=== PATIENT | female | born 1965 | race Caucasian/White ===

== ENCOUNTER 2021-10-07 17:17 | Inpatient (IN) | payer MEDICARE ==
[2021-10-07] MEDS ORDERED: NOREPINEPHRINE 8 MG/250 ML-D5W 250 ML ONE (17:25)
[2021-10-07] MEDS ORDERED: Ondansetron PF 4 MG/2 ML Vial ONE (17:51)
[2021-10-07] MEDS ORDERED: Lidocaine 1% (PF) 30 ML VIAL ONE (17:53)
[2021-10-07] MEDS ORDERED: Morphine 4 MG/ML VIAL ONE ×2 (18:15→18:18)
[2021-10-07 18:44] LABS: ALT (SGPT) 20 U/L (8-55); Albumin 2.8 g/dL (3.5-5.0); Alkaline Phosphatase 79 U/L (40-110); Anion Gap 18 mmol/L (10-20); BUN (Urea Nitrogen) 27 mg/dL (9.8-20.1); Bilirubin, Total 0.9 mg/dL (0.2-1.2); Calc. Creatinine Clearance 0 mL/min (70-130); Calcium 6.4 mg/dL (7.8-10.44); Carbon Dioxide 21 mmol/L (22-29); Chloride 95 mmol/L (98-107); Estimated GFR 23; Globulin 3.3 g/dL (2.4-3.5); Glucose 99 mg/dL (70-105); Protein, Total 6.1 g/dL (6.0-8.3); Sodium 131 mmol/L (136-145)
[2021-10-07 18:47] LABS: AST (SGOT) 68 U/L (5-34); Potassium 2.9 mmol/L (3.5-5.1)
[2021-10-07] MEDS ORDERED: Dextrose 5% in Water 1,000 ML IV PRN (19:03)
[2021-10-07] MEDS ORDERED: Calcium Carbonate 500 MG ChewTAB PO PRN (19:03)
[2021-10-07] MEDS ORDERED: Dextrose 50% Abboject 50 ML SYRINGE SLOW IVP PRN (19:03)
[2021-10-07] MEDS ORDERED: Senokot S 8.6-50 MG TAB PO PRN (19:03)
[2021-10-07] MEDS ORDERED: Guaifenesin DM 100-10/5 ML UDCUP PO PRN (19:03)
[2021-10-07] MEDS ORDERED: NOREPINEPHRINE 8 MG/250 ML-D5W 250 ML IVPB SCH (19:15)
[2021-10-07] MEDS ORDERED: Lactated Ringer's 1,000 ML IV SCH (19:15)
[2021-10-07] MEDS ORDERED: Calcium Gluc 4.6 MEQ/10 ML (100 MG/ML) SLOW IVP SCH (20:15)
[2021-10-07] MEDS ORDERED: Vancomycin HCl 1.5 GM, Admixture Fee 1 EACH in Sodium Chloride 0.9% 250 ML 300 ML IVPB SCH (20:30)
[2021-10-07] MEDS: Potassium Chloride 20 MEQ in Premix Bag 1 BAG IVPB SCH ×2 (20:58→22:37)
[2021-10-07] MEDS: Pantoprazole 40 MG VIAL IVP SCH (21:44)
[2021-10-07] MEDS: Nicotine 21 MG PATCH TD SCH (22:27)
[2021-10-07] MEDS: traZODone HCl 50 MG TAB PO SCH (22:27)
[2021-10-07] MEDS: Gabapentin 300 MG CAP PO SCH (22:27)
[2021-10-07] MEDS: Ondansetron PF 4 MG/2 ML Vial IVP PRN (22:40)
[2021-10-08 01:05] VITALS: BMI 32.4
[2021-10-08] MEDS ORDERED: Cefepime 2 GM in Sodium Chloride 0.9% 100 ML IVPB SCH (04:00)
[2021-10-08] MEDS: Ondansetron PF 4 MG/2 ML Vial IVP PRN ×2 (04:27→09:30)
[2021-10-08 04:44] LABS: #Eosinphils 0.1 10x3/uL (0.0-0.5); #Monocytes 0.3 10x3/uL (0.0-1.1); #Neutrophils 5.2 10x3/uL (1.5-8.4); %Basophils 0.2 % (0.0-2.0); %Eosinophils 1.3 % (0.0-6.0); %Lymphocytes 11.3 % (18.0-47.0); %Neutrophils 81.4 % (40.0-75.0); Hemoglobin 8.7 g/dL (12.0-15.5); Mean Corpuscular HGB CONC 35.4 g/dL (32.0-36.0); Mean Corpuscular Hemoglobin 31.2 pg (27.0-33.0); Mean Corpuscular Volume 88.2 fl (81.6-98.3); Mean Platelet Volume 11.7 fl (7.4-10.4); RBC Distribution Width 14.6 % (11.5-14.5); Red Blood Cell (RBC) Count 2.79 10x6/uL (3.90-5.03); White Blood Cell (WBC) Count 6.4 10x3/uL (3.5-10.5)
[2021-10-08 04:45] LABS: Platelet Count 162 10x3/uL (150-450)
[2021-10-08 04:56] LABS: ALT (SGPT) 15 U/L (8-55); AST (SGOT) 39 U/L (5-34); Albumin 2.7 g/dL (3.5-5.0); Alkaline Phosphatase 80 U/L (40-110); Anion Gap 15 mmol/L (10-20); BUN (Urea Nitrogen) 25 mg/dL (9.8-20.1); Bilirubin, Total 0.8 mg/dL (0.2-1.2); CK (CPK) 738 U/L (29-168); Calc. Creatinine Clearance 41 mL/min (70-130); Calcium 6.3 mg/dL (7.8-10.44); Carbon Dioxide 25 mmol/L (22-29); Chloride 101 mmol/L (98-107); Estimated GFR 26; Globulin 2.9 g/dL (2.4-3.5); Glucose 95 mg/dL (70-105); Protein, Total 5.6 g/dL (6.0-8.3); Sodium 139 mmol/L (136-145)
[2021-10-08 05:01] LABS: Magnesium 0.8 mg/dL (1.6-2.6); Potassium 2.2 mmol/L (3.5-5.1)
[2021-10-08] MEDS: Potassium Chloride 40 MEQ in Premix Bag 1 BAG IVPB SCH ×2 (05:41→09:44)
[2021-10-08] MEDS: Magnesium 2 GM/50 ML(in water) 2 GM in Premix Bag 1 BAG IVPB SCH ×2 (05:45→08:05)
[2021-10-08] MEDS ORDERED: Calcium Gluc 4.6 MEQ/10 ML (100 MG/ML) SLOW IVP SCH (05:45)
[2021-10-08] MEDS ORDERED: Enoxaparin Sodium 30 MG/0.3 ML SYRINGE SC SCH (09:00)
[2021-10-08] MEDS ORDERED: Pantoprazole 40 MG VIAL IVP SCH (09:00)
[2021-10-08] MEDS: Pantoprazole 40 MG VIAL IVP SCH ×2 (09:41→21:20)
[2021-10-08] MEDS ORDERED: HYDROmorphone 0.5 MG/0.5 ML SYRINGE SLOW IVP SCH (10:00)
[2021-10-08] MEDS: Mometasone/Formoterol 60 PUFF AER INH SCH ×2 (10:28→18:30)
[2021-10-08] MEDS: tiZANidine HCl 4 MG TAB PO SCH (10:51)
[2021-10-08] MEDS: Gabapentin 300 MG CAP PO SCH ×3 (10:51→21:19)
[2021-10-08 12:56] LABS: Anion Gap 17 mmol/L (10-20); BUN (Urea Nitrogen) 21 mg/dL (9.8-20.1); Calc. Creatinine Clearance 44 mL/min (70-130); Calcium 7.4 mg/dL (7.8-10.44); Carbon Dioxide 25 mmol/L (22-29); Chloride 102 mmol/L (98-107); Estimated GFR 29; Glucose 98 mg/dL (70-105); Magnesium 1.8 mg/dL (1.6-2.6); Potassium 2.9 mmol/L (3.5-5.1); Sodium 141 mmol/L (136-145)
[2021-10-08] MEDS: Sodium Chloride 0.9% 1,000 ML IV SCH ×2 (13:00→21:28)
[2021-10-08] MEDS ORDERED: Potassium Chloride 40 MEQ in Premix Bag 1 BAG IVPB SCH (15:30)
[2021-10-08] MEDS: Cefepime 1 GM in Sodium Chloride 0.9% 100 ML IVPB SCH (15:47)
[2021-10-08 20:05] LABS: Anion Gap 15 mmol/L (10-20); BUN (Urea Nitrogen) 17 mg/dL (9.8-20.1); Calc. Creatinine Clearance 53 mL/min (70-130); Calcium 6.8 mg/dL (7.8-10.44); Carbon Dioxide 24 mmol/L (22-29); Chloride 102 mmol/L (98-107); Estimated GFR 36; Glucose 136 mg/dL (70-105); Sodium 138 mmol/L (136-145)
[2021-10-08 20:08] LABS: Potassium 2.6 mmol/L (3.5-5.1)
[2021-10-08] MEDS ORDERED: Magnesium Sulfate/D5W 1 GM/100 ML BAG IVPB SCH (20:30)
[2021-10-08] MEDS: Potassium Chloride 20 MEQ in Premix Bag 1 BAG IVPB SCH ×2 (21:00→23:18)
[2021-10-08] MEDS: Calcium Gluc 4.6 MEQ/10 ML (100 MG/ML) SLOW IVP SCH (21:18)
[2021-10-08] MEDS: Nicotine 21 MG PATCH TD SCH (23:13)
[2021-10-08] MEDS: traZODone HCl 50 MG TAB PO SCH (23:39)
[2021-10-09] MEDS: Sodium Chloride 0.9% 1,000 ML IV SCH ×4 (01:00→22:55)
[2021-10-09] MEDS: Calcium Gluc 4.6 MEQ/10 ML (100 MG/ML) SLOW IVP SCH (01:39)
[2021-10-09] MEDS: Potassium Chloride 20 MEQ in Premix Bag 1 BAG IVPB SCH ×3 (01:39→09:46)
[2021-10-09 04:17] LABS: #Eosinphils 0.1 10x3/uL (0.0-0.5); #Monocytes 0.4 10x3/uL (0.0-1.1); #Neutrophils 3.7 10x3/uL (1.5-8.4); %Basophils 0.4 % (0.0-2.0); %Eosinophils 1.5 % (0.0-6.0); %Lymphocytes 20.3 % (18.0-47.0); %Monocytes 6.9 % (0.0-10.0); %Neutrophils 70.1 % (40.0-75.0); Hemoglobin 8.2 g/dL (12.0-15.5); Mean Corpuscular HGB CONC 34.6 g/dL (32.0-36.0); Mean Corpuscular Hemoglobin 31.1 pg (27.0-33.0); Mean Corpuscular Volume 89.8 fl (81.6-98.3); Mean Platelet Volume 10.3 fl (7.4-10.4); Platelet Count 143 10x3/uL (150-450); RBC Distribution Width 14.8 % (11.5-14.5); Red Blood Cell (RBC) Count 2.64 10x6/uL (3.90-5.03); White Blood Cell (WBC) Count 5.2 10x3/uL (3.5-10.5)
[2021-10-09 04:29] LABS: Anion Gap 14 mmol/L (10-20); BUN (Urea Nitrogen) 13 mg/dL (9.8-20.1); Calc. Creatinine Clearance 63 mL/min (70-130); Calcium 7.3 mg/dL (7.8-10.44); Carbon Dioxide 25 mmol/L (22-29); Chloride 101 mmol/L (98-107); Estimated GFR 44; Glucose 102 mg/dL (70-105); Magnesium 1.3 mg/dL (1.6-2.6); Sodium 137 mmol/L (136-145)
[2021-10-09 04:56] LABS: Potassium 2.8 mmol/L (3.5-5.1)
[2021-10-09] MEDS: Cefepime 1 GM in Sodium Chloride 0.9% 100 ML IVPB SCH ×2 (05:12→16:10)
[2021-10-09] MEDS ORDERED: Calcium Gluc 4.6 MEQ/10 ML (100 MG/ML) SLOW IVP SCH (05:30)
[2021-10-09] MEDS: Mometasone/Formoterol 60 PUFF AER INH SCH ×2 (07:37→19:53)
[2021-10-09] MEDS ORDERED: Furosemide 40 MG/4 ML VIAL SLOW IVP SCH (09:00)
[2021-10-09] MEDS ORDERED: Potassium Chloride 20 MEQ TAB PO SCH (09:00)
[2021-10-09] MEDS ORDERED: Magnesium 2 GM/50 ML BAG (IN WATER) ONE ×2 (09:40→10:49)
[2021-10-09] MEDS ORDERED: Potassium Chloride 20 MEQ/100 ML PREMIX BAG ONE (09:41)
[2021-10-09] MEDS: Gabapentin 300 MG CAP PO SCH ×3 (09:45→20:48)
[2021-10-09] MEDS: Enoxaparin Sodium 40 MG/0.4 ML SYRINGE SC SCH (09:46)
[2021-10-09] MEDS: Magnesium 2 GM/50 ML(in water) 2 GM in Premix Bag 1 BAG IVPB SCH ×2 (09:48→10:54)
[2021-10-09] MEDS: Pantoprazole 40 MG VIAL IVP SCH ×2 (09:48→20:45)
[2021-10-09] MEDS: tiZANidine HCl 4 MG TAB PO SCH (09:49)
[2021-10-09] MEDS: Acetaminophen 325 MG TAB PO PRN ×2 (10:09→20:44)
[2021-10-09 12:34] LABS: Anion Gap 13 mmol/L (10-20); BUN (Urea Nitrogen) 11 mg/dL (9.8-20.1); Calc. Creatinine Clearance 67 mL/min (70-130); Calcium 7.5 mg/dL (7.8-10.44); Carbon Dioxide 26 mmol/L (22-29); Chloride 101 mmol/L (98-107); Estimated GFR 47; Glucose 212 mg/dL (70-105); Magnesium 2.9 mg/dL (1.6-2.6); Potassium 3.6 mmol/L (3.5-5.1); Sodium 136 mmol/L (136-145)
[2021-10-09] MEDS: HumaLOG 300 UNITS/3 ML VIAL SC PRN (12:41)
[2021-10-09 19:39] LABS: Campy jejuni + coli by PCR Negative (Negative); STEC Shiga Toxin 1+2 Negative (Negative); Salmonella spp. by PCR Negative (Negative); Shigella spp + EIEC by PCR Negative (Negative)
[2021-10-09] MEDS: traZODone HCl 50 MG TAB PO SCH (20:43)
[2021-10-09] MEDS: Nicotine 21 MG PATCH TD SCH (20:45)
[2021-10-10] MEDS: Cefepime 1 GM in Sodium Chloride 0.9% 100 ML IVPB SCH (03:51)
[2021-10-10 04:43] LABS: Anion Gap 11 mmol/L (10-20); BUN (Urea Nitrogen) 9 mg/dL (9.8-20.1); Calc. Creatinine Clearance 81 mL/min (70-130); Calcium 7.7 mg/dL (7.8-10.44); Carbon Dioxide 29 mmol/L (22-29); Chloride 101 mmol/L (98-107); Estimated GFR 60; Glucose 122 mg/dL (70-105); Magnesium 1.6 mg/dL (1.6-2.6); Potassium 3.1 mmol/L (3.5-5.1); Sodium 138 mmol/L (136-145)
[2021-10-10] MEDS: Sodium Chloride 0.9% 1,000 ML IV SCH ×3 (06:36→22:01)
[2021-10-10 08:42] LABS: #Eosinphils 0.1 10x3/uL (0.0-0.5); #Monocytes 0.3 10x3/uL (0.0-1.1); #Neutrophils 4.6 10x3/uL (1.5-8.4); %Basophils 0.2 % (0.0-2.0); %Lymphocytes 15.8 % (18.0-47.0); %Monocytes 4.7 % (0.0-10.0); %Neutrophils 76.6 % (40.0-75.0); Hemoglobin 8.6 g/dL (12.0-15.5); Mean Corpuscular HGB CONC 34.4 g/dL (32.0-36.0); Mean Corpuscular Hemoglobin 30.8 pg (27.0-33.0); Mean Corpuscular Volume 89.6 fl (81.6-98.3); Mean Platelet Volume 10.3 fl (7.4-10.4); Platelet Count 181 10x3/uL (150-450); RBC Distribution Width 14.6 % (11.5-14.5); Red Blood Cell (RBC) Count 2.79 10x6/uL (3.90-5.03)
[2021-10-10] MEDS: cefTRIAXone\\ROCEPHIN 1 GM in Sodium Chloride 0.9% 100 ML IVPB SCH (09:31)
[2021-10-10] MEDS: tiZANidine HCl 4 MG TAB PO SCH (09:31)
[2021-10-10] MEDS: Gabapentin 300 MG CAP PO SCH ×3 (09:31→21:59)
[2021-10-10] MEDS: Pantoprazole 40 MG VIAL IVP SCH ×2 (09:32→22:00)
[2021-10-10] MEDS: Enoxaparin Sodium 40 MG/0.4 ML SYRINGE SC SCH (09:32)
[2021-10-10] MEDS ORDERED: Electrolyte Replacement Protocol 1 EACH FS SCH ×2 (10:15)
[2021-10-10] MEDS ORDERED: Magnesium 2 GM/50 ML(in water) 2 GM in Premix Bag 1 BAG IVPB SCH (11:00)
[2021-10-10] MEDS ORDERED: Potassium Chloride 20 MEQ TAB PO SCH (11:00)
[2021-10-10] MEDS: Mometasone/Formoterol 60 PUFF AER INH SCH ×2 (11:34→19:27)
[2021-10-10] MEDS ORDERED: Magnesium 2 GM/50 ML BAG (IN WATER) ONE (11:47)
[2021-10-10] MEDS: HumaLOG 300 UNITS/3 ML VIAL SC PRN ×2 (11:56→22:16)
[2021-10-10] MEDS: Acetaminophen 325 MG TAB PO PRN (15:30)
[2021-10-10 16:18] LABS: Potassium 3.2 mmol/L (3.5-5.1)
[2021-10-10] MEDS: traZODone HCl 50 MG TAB PO SCH (22:05)
[2021-10-10] MEDS: Nicotine 21 MG PATCH TD SCH (22:06)
[2021-10-11 04:36] LABS: #Eosinphils 0.1 10x3/uL (0.0-0.5); #Monocytes 0.2 10x3/uL (0.0-1.1); #Neutrophils 2.6 10x3/uL (1.5-8.4); %Eosinophils 2.2 % (0.0-6.0); %Lymphocytes 28.5 % (18.0-47.0); %Monocytes 5.1 % (0.0-10.0); %Neutrophils 63.7 % (40.0-75.0); Hemoglobin 7.8 g/dL (12.0-15.5); Mean Corpuscular HGB CONC 35.3 g/dL (32.0-36.0); Mean Corpuscular Hemoglobin 31.5 pg (27.0-33.0); Mean Corpuscular Volume 89.1 fl (81.6-98.3); Mean Platelet Volume 10.6 fl (7.4-10.4); Platelet Count 200 10x3/uL (150-450); RBC Distribution Width 14.5 % (11.5-14.5); Red Blood Cell (RBC) Count 2.48 10x6/uL (3.90-5.03); White Blood Cell (WBC) Count 4.1 10x3/uL (3.5-10.5)
[2021-10-11 04:59] LABS: ALT (SGPT) 12 U/L (8-55); AST (SGOT) 21 U/L (5-34); Albumin 2.7 g/dL (3.5-5.0); Alkaline Phosphatase 93 U/L (40-110); Anion Gap 10 mmol/L (10-20); BUN (Urea Nitrogen) 6 mg/dL (9.8-20.1); Bilirubin, Total 0.5 mg/dL (0.2-1.2); Calc. Creatinine Clearance 103 mL/min (70-130); Calcium 7.8 mg/dL (7.8-10.44); Carbon Dioxide 29 mmol/L (22-29); Chloride 103 mmol/L (98-107); Estimated GFR 80; Globulin 2.8 g/dL (2.4-3.5); Glucose 119 mg/dL (70-105); Magnesium 1.5 mg/dL (1.6-2.6); Phosphorus 2.1 mg/dL (2.3-4.7); Potassium 3.2 mmol/L (3.5-5.1); Protein, Total 5.5 g/dL (6.0-8.3); Sodium 139 mmol/L (136-145)
[2021-10-11] MEDS ORDERED: Potassium Chloride 20 MEQ TAB PO SCH (05:15)
[2021-10-11] MEDS ORDERED: Magnesium 2 GM/50 ML(in water) 2 GM in Premix Bag 1 BAG IVPB SCH (05:15)
[2021-10-11] MEDS: Gabapentin 300 MG CAP PO SCH ×3 (08:19→22:46)
[2021-10-11] MEDS: Enoxaparin Sodium 40 MG/0.4 ML SYRINGE SC SCH (08:19)
[2021-10-11] MEDS: tiZANidine HCl 4 MG TAB PO SCH (08:19)
[2021-10-11] MEDS: Pantoprazole 40 MG VIAL IVP SCH ×2 (08:19→22:47)
[2021-10-11] MEDS: cefTRIAXone\\ROCEPHIN 1 GM in Sodium Chloride 0.9% 100 ML IVPB SCH (08:19)
[2021-10-11] MEDS: Mometasone/Formoterol 60 PUFF AER INH SCH ×2 (09:52→19:45)
[2021-10-11] MEDS: Lactated Ringer's 500 ML IV SCH ×2 (12:28→22:15)
[2021-10-11] MEDS: Acetaminophen 325 MG TAB PO PRN (12:28)
[2021-10-11] MEDS: traZODone HCl 50 MG TAB PO SCH (22:47)
[2021-10-11] MEDS: Nicotine 21 MG PATCH TD SCH (22:48)
[2021-10-12 05:03] LABS: ALT (SGPT) 12 U/L (8-55); AST (SGOT) 28 U/L (5-34); Albumin 2.9 g/dL (3.5-5.0); Alkaline Phosphatase 111 U/L (40-110); Anion Gap 13 mmol/L (10-20); BUN (Urea Nitrogen) 7 mg/dL (9.8-20.1); Bilirubin, Total 0.4 mg/dL (0.2-1.2); Calc. Creatinine Clearance 107 mL/min (70-130); Calcium 8.1 mg/dL (7.8-10.44); Carbon Dioxide 26 mmol/L (22-29); Chloride 101 mmol/L (98-107); Estimated GFR 83; Glucose 158 mg/dL (70-105); Potassium 3.4 mmol/L (3.5-5.1); Protein, Total 5.9 g/dL (6.0-8.3); Sodium 137 mmol/L (136-145)
[2021-10-12] MEDS ORDERED: Potassium Chloride 20 MEQ TAB PO SCH (05:30)
[2021-10-12] MEDS: Mometasone/Formoterol 60 PUFF AER INH SCH (07:20)
[2021-10-12 07:43] LABS: #Eosinphils 0.1 10x3/uL (0.0-0.5); #Monocytes 0.3 10x3/uL (0.0-1.1); #Neutrophils 3.6 10x3/uL (1.5-8.4); %Basophils 0.4 % (0.0-2.0); %Eosinophils 1.3 % (0.0-6.0); %Lymphocytes 27.6 % (18.0-47.0); %Monocytes 5.4 % (0.0-10.0); %Neutrophils 64.2 % (40.0-75.0); Hemoglobin 8.4 g/dL (12.0-15.5); Mean Corpuscular HGB CONC 33.1 g/dL (32.0-36.0); Mean Corpuscular Volume 93.7 fl (81.6-98.3); Mean Platelet Volume 10.7 fl (7.4-10.4); Platelet Count 251 10x3/uL (150-450); RBC Distribution Width 15.2 % (11.5-14.5); Red Blood Cell (RBC) Count 2.71 10x6/uL (3.90-5.03); White Blood Cell (WBC) Count 5.6 10x3/uL (3.5-10.5)
[2021-10-12 08:22] VITALS: BP 121/72; TEMP 97.2
[2021-10-12] MEDS: Lactated Ringer's 500 ML IV SCH (09:03)
[2021-10-12] MEDS: Pantoprazole 40 MG VIAL IVP SCH (09:05)
[2021-10-12] MEDS: cefTRIAXone\\ROCEPHIN 1 GM in Sodium Chloride 0.9% 100 ML IVPB SCH (09:05)
[2021-10-12] MEDS: tiZANidine HCl 4 MG TAB PO SCH (09:05)
[2021-10-12] MEDS: Enoxaparin Sodium 40 MG/0.4 ML SYRINGE SC SCH (09:05)
[2021-10-12] MEDS: Gabapentin 300 MG CAP PO SCH (09:05)
== END 2021-10-12 10:38 | disposition home or self-care (01) | DRG 871 ==
LOC: CSHERS 17:17 → CSHIMCU 19:55 → CSHTELE 10-08 19:34
PROVIDERS: ADMIT Student in an Organized Health Care Education/Training Program; ATTEND Family Medicine
PROC: 02HV33Z Insertion of Infusion Device into Superior Vena Cava, Percutaneous Approach (ICD-10-PCS; principal; 2021-10-07)
PROC: B548ZZA Ultrasonography of Superior Vena Cava, Guidance (ICD-10-PCS; 2021-10-07)
PROC: 3E043XZ Introduction of Vasopressor into Central Vein, Percutaneous Approach (ICD-10-PCS; 2021-10-07)
PROC: 3E03329 Introduction of Other Anti-infective into Peripheral Vein, Percutaneous Approach (ICD-10-PCS; 2021-10-07)
DX: A41.51 Sepsis due to Escherichia coli [E. coli] (principal); R65.21 Severe sepsis with septic shock; R57.1 Hypovolemic shock; G92.8 Other toxic encephalopathy; N17.9 Acute kidney failure, unspecified; Z16.30 Resistance to unspecified antimicrobial drugs; K52.1 Toxic gastroenteritis and colitis; N10 Acute pyelonephritis; E87.6 Hypokalemia; N18.32 Chronic kidney disease, stage 3b; E11.22 Type 2 diabetes mellitus with diabetic chronic kidney disease; I12.9 Hypertensive chronic kidney disease with stage 1 through stage 4 chronic kidney disease, or unspecified chronic kidney disease; J44.9 Chronic obstructive pulmonary disease, unspecified; G89.29 Other chronic pain; R79.89 Other specified abnormal findings of blood chemistry; E83.51 Hypocalcemia; T40.2X5A Adverse effect of other opioids, initial encounter; D63.1 Anemia in chronic kidney disease; M50.20 Other cervical disc displacement, unspecified cervical region; K21.9 Gastro-esophageal reflux disease without esophagitis; E11.65 Type 2 diabetes mellitus with hyperglycemia; T36.95XA Adverse effect of unspecified systemic antibiotic, initial encounter; E66.01 Morbid (severe) obesity due to excess calories; F17.210 Nicotine dependence, cigarettes, uncomplicated; E86.0 Dehydration; E83.42 Hypomagnesemia; E83.39 Other disorders of phosphorus metabolism; Z68.32 Body mass index [BMI] 32.0-32.9, adult; Z90.710 Acquired absence of both cervix and uterus; Z98.890 Other specified postprocedural states; Z80.9 Family history of malignant neoplasm, unspecified; Z88.6 Allergy status to analgesic agent; Z71.6 Tobacco abuse counseling; Z79.899 Other long term (current) drug therapy; Z87.11 Personal history of peptic ulcer disease
CPT/HCPCS: 36415; 36416; 36556; 71045; 74176; 74250; 80048; 80053; 82533; 82550; 83630; 83735; 83880; 84100; 84145; 84443; 85025; 87324; 87449; 87505; 94640; 94664; 94760; 96374; 96375; C9113; J0610; J0692; J0696; J1170; J1650; J1940; J2001; J2270; J2405; J3370; J3475; J3480; J3490; J7050; J7120; J7620

== ENCOUNTER 2021-10-28 18:22 | Inpatient (IN) | payer MEDICARE ==
[2021-10-28 18:43] VITALS: BMI 33.0
[2021-10-28] MEDS ORDERED: Prevnar 13-Val Conj/PF 0.5 ML SYRINGE IM ONE (19:00)
[2021-10-28] MEDS ORDERED: Guaifenesin DM 100-10/5 ML UDCUP PO PRN (19:12)
[2021-10-28] MEDS ORDERED: Dextrose 5% in Water 1,000 ML IV PRN (19:12)
[2021-10-28] MEDS ORDERED: Acetaminophen 325 MG TAB PO PRN (19:12)
[2021-10-28] MEDS ORDERED: Dextrose 50% Abboject 50 ML SYRINGE SLOW IVP PRN (19:12)
[2021-10-28] MEDS ORDERED: Calcium Carbonate 500 MG ChewTAB PO PRN (19:12)
[2021-10-28] MEDS ORDERED: traZODone HCl 50 MG TAB PO PRN (19:19)
[2021-10-28] MEDS ORDERED: Lactated Ringer's 1,000 ML IV SCH (19:30)
[2021-10-28] MEDS ORDERED: Atenolol 25 MG TAB PO SCH (20:30)
[2021-10-28] MEDS ORDERED: Magnesium 2 GM/50 ML(in water) 2 GM in Premix Bag 1 BAG IVPB SCH (20:30)
[2021-10-28] MEDS ORDERED: Potassium Chloride 20 MEQ TAB PO SCH (20:30)
[2021-10-28] MEDS: Gabapentin 300 MG CAP PO SCH (21:12)
[2021-10-28] MEDS ORDERED: metroNIDAZOLE 500 MG in Premix Bag 1 BAG IVPB SCH (22:00)
[2021-10-29] MEDS: Vancomycin 25 MG/ML Oral SOLN PO SCH ×5 (00:24→16:57)
[2021-10-29 06:25] LABS: ALT (SGPT) 20 U/L (8-55); AST (SGOT) 34 U/L (5-34); Albumin 3.3 g/dL (3.5-5.0); Alkaline Phosphatase 129 U/L (40-110); Anion Gap 14 mmol/L (10-20); BUN (Urea Nitrogen) 8 mg/dL (9.8-20.1); Bilirubin, Total 0.6 mg/dL (0.2-1.2); Calc. Creatinine Clearance 86 mL/min (70-130); Calcium 7.6 mg/dL (7.8-10.44); Carbon Dioxide 22 mmol/L (22-29); Cardiac Risk 7.3 (Less than 4.5); Chloride 108 mmol/L (98-107); Cholesterol 146 mg/dl (< 200 Desired); Estimated GFR 63; Glucose 168 mg/dL (70-105); HDL Cholesterol 20 mg/dL (>60 Neg Risk); LDL Cholesterol, Calculated 86 mg/dL; Magnesium 1.8 mg/dL (1.6-2.6); Potassium 3.9 mmol/L (3.5-5.1); Protein, Total 6.3 g/dL (6.0-8.3); Sodium 140 mmol/L (136-145); Triglycerides 200 mg/dL (Less than 150)
[2021-10-29 06:26] LABS: #Eosinphils 0.2 10x3/uL (0.0-0.5); #Monocytes 0.4 10x3/uL (0.0-1.1); %Basophils 0.3 % (0.0-2.0); %Eosinophils 2.2 % (0.0-6.0); %Lymphocytes 16.9 % (18.0-47.0); %Monocytes 6.4 % (0.0-10.0); %Neutrophils 73.6 % (40.0-75.0); Hemoglobin 9.8 g/dL (12.0-15.5); Mean Corpuscular HGB CONC 33.2 g/dL (32.0-36.0); Mean Corpuscular Hemoglobin 32.5 pg (27.0-33.0); Mean Corpuscular Volume 97.7 fl (81.6-98.3); Mean Platelet Volume 9.4 fl (7.4-10.4); Platelet Count 208 10x3/uL (150-450); RBC Distribution Width 17.2 % (11.5-14.5); Red Blood Cell (RBC) Count 3.02 10x6/uL (3.90-5.03); White Blood Cell (WBC) Count 6.8 10x3/uL (3.5-10.5)
[2021-10-29 06:45] LABS: CKMB 1.7 ng/mL (0-6.6)
[2021-10-29 06:46] LABS: CRP (Inflammatory) 3.35 mg/dL (= or < 0.5)
[2021-10-29] MEDS: HumaLOG 300 UNITS/3 ML VIAL SC PRN ×3 (06:54→21:23)
[2021-10-29] MEDS: Budesonide 0.5 MG/2 ML NEB NEB SCH ×2 (07:42→19:40)
[2021-10-29] MEDS: Enoxaparin Sodium 40 MG/0.4 ML SYRINGE SC SCH (08:56)
[2021-10-29] MEDS: Atenolol 25 MG TAB PO SCH (08:57)
[2021-10-29] MEDS: Gabapentin 300 MG CAP PO SCH ×2 (08:57→21:24)
[2021-10-29] MEDS: Ondansetron PF 4 MG/2 ML Vial IVP PRN ×2 (10:09→15:13)
[2021-10-29 19:54] LABS: Campy jejuni + coli by PCR Negative (Negative); STEC Shiga Toxin 1+2 Negative (Negative); Salmonella spp. by PCR Negative (Negative); Shigella spp + EIEC by PCR Negative (Negative)
[2021-10-29] MEDS ORDERED: Lisinopril 5 MG TAB PO SCH (22:00)
[2021-10-30] MEDS: Vancomycin 25 MG/ML Oral SOLN PO SCH ×2 (02:44→05:21)
[2021-10-30 07:28] VITALS: BP 174/91; TEMP 99.3
[2021-10-30] MEDS: Budesonide 0.5 MG/2 ML NEB NEB SCH (08:18)
[2021-10-30] MEDS: Enoxaparin Sodium 40 MG/0.4 ML SYRINGE SC SCH (09:02)
[2021-10-30] MEDS: Gabapentin 300 MG CAP PO SCH (09:02)
[2021-10-30] MEDS: Atenolol 25 MG TAB PO SCH (09:02)
[2021-10-30] MEDS ORDERED: Lisinopril 10 MG TAB PO SCH ×2 (10:00→21:00)
[2021-10-30] MEDS ORDERED: Lisinopril 5 MG TAB PO SCH (21:00)
[2021-10-31 16:03] LABS: EliA Celiac New Method **** NEW METHOD ****; Gliadin IgA Ab, Deamidated 2.7 EliAU/mL (<7 Negative); Gliadin IgG Ab, Deamidated Less than 0.4 EliAU/mL (<7 Negative); t-Transglutaminase (tTG) IgA 2.5 EliAU/mL (<7 Negative); t-Transglutaminase (tTG) IgG Less than 0.6 EliAU/mL (<7 Negative)
== END 2021-10-30 11:10 | disposition home or self-care (01) | DRG 371 ==
LOC: CSHTELE 18:22 → OBSVTOIN 19:12
PROVIDERS: ADMIT Internal Medicine; ATTEND Internal Medicine
DX: A04.72 Enterocolitis due to Clostridium difficile, not specified as recurrent (principal); I21.A1 Myocardial infarction type 2; R65.10 Systemic inflammatory response syndrome (SIRS) of non-infectious origin without acute organ dysfunction; I13.0 Hypertensive heart and chronic kidney disease with heart failure and stage 1 through stage 4 chronic kidney disease, or unspecified chronic kidney disease; J44.9 Chronic obstructive pulmonary disease, unspecified; F17.210 Nicotine dependence, cigarettes, uncomplicated; G89.29 Other chronic pain; M51.26 Other intervertebral disc displacement, lumbar region; M50.20 Other cervical disc displacement, unspecified cervical region; R77.8 Other specified abnormalities of plasma proteins; E86.0 Dehydration; E83.42 Hypomagnesemia; D63.1 Anemia in chronic kidney disease; N18.32 Chronic kidney disease, stage 3b; E11.22 Type 2 diabetes mellitus with diabetic chronic kidney disease; E11.65 Type 2 diabetes mellitus with hyperglycemia; E87.6 Hypokalemia; K21.9 Gastro-esophageal reflux disease without esophagitis; E66.01 Morbid (severe) obesity due to excess calories; K76.0 Fatty (change of) liver, not elsewhere classified; E78.1 Pure hyperglyceridemia; N28.1 Cyst of kidney, acquired; I50.9 Heart failure, unspecified; Z71.6 Tobacco abuse counseling; Z68.33 Body mass index [BMI] 33.0-33.9, adult; Z90.710 Acquired absence of both cervix and uterus; Z98.890 Other specified postprocedural states; Z88.6 Allergy status to analgesic agent; Z79.899 Other long term (current) drug therapy; Z80.9 Family history of malignant neoplasm, unspecified
CPT/HCPCS: 36415; 36416; 76705; 80053; 80061; 82553; 82607; 83516; 83630; 83735; 84145; 84484; 85025; 86140; 87324; 87328; 87329; 87449; 87505; 93306; 94640; 94760; J1650; J1815; J2405; J3475; J7120; J7626

== ENCOUNTER 2022-04-24 07:54 | Inpatient (IN) | payer MEDICARE ==
[2022-04-24 08:27] LABS: Actual Bicarbonate (HCO3v) 25 mEq/L (22-28); Base Excess 6.3 mEq/L (-2 - +2); Chloride (VBG) 85 mmol/L (98-106); Potassium (VBG) 3.34 mmol/L (3.70-5.30); Puncture Site Other Site; RapidComm Collect By CBN; Sodium 125.7 mmol/L (133-146); pH (venous) 7.65 (7.32-7.43)
[2022-04-24 08:28] LABS: #Basophils 0.1 10x3/uL (0.0-0.2); #Monocytes 0.8 10x3/uL (0.0-1.1); #Neutrophils 13.7 10x3/uL (1.5-8.4); %Basophils 0.4 % (0.0-2.0); %Eosinophils 0.2 % (0.0-6.0); %Lymphocytes 11.2 % (18.0-47.0); %Monocytes 4.8 % (0.0-10.0); %Neutrophils 82.9 % (40.0-75.0); Hemoglobin 15.3 g/dL (12.0-15.5); Mean Corpuscular Volume 86.4 fl (81.6-98.3); Mean Platelet Volume 11.7 fl (7.4-10.4); Platelet Count 248 10x3/uL (150-450); RBC Distribution Width 11.8 % (11.5-14.5); Red Blood Cell (RBC) Count 4.78 10x6/uL (3.90-5.03); White Blood Cell (WBC) Count 16.6 10x3/uL (3.5-10.5)
[2022-04-24 08:50] LABS: ALT (SGPT) 65 U/L (8-55); AST (SGOT) 79 U/L (5-34); Albumin 3.9 g/dL (3.5-5.0); Alkaline Phosphatase 250 U/L (40-110); Anion Gap 27 mmol/L (10-20); BUN (Urea Nitrogen) 31 mg/dL (9.8-20.1); Calc. Creatinine Clearance 0 mL/min (70-130); Calcium 9.7 mg/dL (7.8-10.44); Carbon Dioxide 19 mmol/L (22-29); Chloride 85 mmol/L (98-107); Estimated GFR 26; Globulin 3.1 g/dL (2.4-3.5); Lipase 133 U/L (8-78); Potassium 3.5 mmol/L (3.5-5.1); Sodium 127 mmol/L (136-145)
[2022-04-24 09:00] LABS: Glucose Greater than 800 mg/dL (70-105)
[2022-04-24 09:35] LABS: Bilirubin Neg (Negative); Blood, Urine 10 (Negative); Clarity Clear (Clear); Glucose, Urine (Dipstick) >=1000 mg/dL (Negative); Ketone, Urine 5 mg/dL (Negative); Leukocyte Negative (Negative); Nitrite Negative (Negative); Protein, Urine (Dipstick) 15 mg/dl (Neg-Trace); Specific Gravity, Urine 1.005 (1.005-1.030); pH, Urine 6.5 (5.0-9.0)
[2022-04-24 09:46] LABS: Bacteria/HPF 2+ HPF (None Seen); RBC/HPF 0-3 HPF (0-3); Squamous Epithelial 0-3 HPF (0-3); WBC/HPF 0-3 HPF (0-3); Yeast-Budding 1+ HPF (None Seen)
[2022-04-24] MEDS ORDERED: Dextrose 5 %-0.45 % NaCl 1,000 ML IV PRN (10:24)
[2022-04-24] MEDS ORDERED: Sodium Chloride 0.9% 1,000 ML IV PRN ×3 (10:24)
[2022-04-24] MEDS ORDERED: NS 0.9% w/ 20 MEQ KCL 1,000 ML IV PRN (10:24)
[2022-04-24] MEDS ORDERED: Dextrose 50% Abboject 50 ML SYRINGE SLOW IVP PRN (10:24)
[2022-04-24] MEDS ORDERED: Electrolyte Replacement Protocol 1 EACH IVPB SCH (10:24)
[2022-04-24] MEDS ORDERED: Cefepime 2 GM VIAL ONE (10:36)
[2022-04-24 10:51] LABS: Anion Gap 21 mmol/L (10-20); BUN (Urea Nitrogen) 29 mg/dL (9.8-20.1); Calc. Creatinine Clearance 0 mL/min (70-130); Calcium 9.2 mg/dL (7.8-10.44); Carbon Dioxide 24 mmol/L (22-29); Chloride 89 mmol/L (98-107); Estimated GFR 29; Potassium 3.6 mmol/L (3.5-5.1); Sodium 130 mmol/L (136-145)
[2022-04-24 11:05] LABS: Glucose 767 mg/dL (70-105)
[2022-04-24 11:20] LABS: Lactic Acid 1.2 mmol/L (0.5-2.2)
[2022-04-24] MEDS: INSULIN REGULAR IN 0.9 % NACL 100 UNIT in Premix Bag 1 BAG IVPB SCH ×2 (12:22→20:02)
[2022-04-24] MEDS: Sodium Chloride 0.9% 1,000 ML IV PRN ×2 (12:31→13:17)
[2022-04-24] MEDS ORDERED: Vancomycin 1 GM VIAL ONE (12:57)
[2022-04-24 13:19] LABS: Critical Call Chemistry Result is less than previous 2 for this assay and is steadily decreasing; Glucose 703 mg/dL (70-105)
[2022-04-24 14:37] LABS: Anion Gap 18 mmol/L (10-20); BUN (Urea Nitrogen) 28 mg/dL (9.8-20.1); Calc. Creatinine Clearance 53 mL/min (70-130); Calcium 8.6 mg/dL (7.8-10.44); Carbon Dioxide 24 mmol/L (22-29); Chloride 97 mmol/L (98-107); Estimated GFR 37; Potassium 3.3 mmol/L (3.5-5.1); Sodium 136 mmol/L (136-145)
[2022-04-24 14:41] LABS: Hemoglobin A1c Greater than 14.0 % (4.0-6.0)
[2022-04-24 14:49] LABS: Critical Call Chemistry RESULT IS LESS THAN PREVIOUSLY REPORTED AND IS DECREASING; Glucose 540 mg/dL (70-105)
[2022-04-24] MEDS ORDERED: FLU VACC QS2022-23(6MOS UP)/PF 60 MCG/0.5 ML SYRINGE IM ONE (15:00)
[2022-04-24] MEDS: NS 0.9% w/ 20 MEQ KCL 1,000 ML IV PRN ×2 (15:08→17:19)
[2022-04-24] MEDS: Potassium Chloride 20 MEQ in Premix Bag 1 BAG IVPB SCH ×2 (15:11→16:15)
[2022-04-24 18:34] LABS: Anion Gap 15 mmol/L (10-20); BUN (Urea Nitrogen) 25 mg/dL (9.8-20.1); Calc. Creatinine Clearance 71 mL/min (70-130); Calcium 8.1 mg/dL (7.8-10.44); Carbon Dioxide 23 mmol/L (22-29); Chloride 106 mmol/L (98-107); Estimated GFR 52; Glucose 257 mg/dL (70-105); Potassium 4.8 mmol/L (3.5-5.1); Sodium 139 mmol/L (136-145)
[2022-04-24] MEDS: D5 1/2 NS w/20 mEq KCL 1,000 ML IV PRN ×2 (19:27→23:38)
[2022-04-24] MEDS: Morphine 4 MG/ML VIAL SLOW IVP PRN (21:40)
[2022-04-25] MEDS: Morphine 4 MG/ML VIAL SLOW IVP PRN ×5 (02:07→21:12)
[2022-04-25] MEDS: D5 1/2 NS w/20 mEq KCL 1,000 ML IV PRN ×2 (03:55→08:09)
[2022-04-25 04:14] LABS: #Eosinphils 0.1 10x3/uL (0.0-0.5); #Monocytes 0.6 10x3/uL (0.0-1.1); #Neutrophils 6.7 10x3/uL (1.5-8.4); %Basophils 0.3 % (0.0-2.0); %Eosinophils 0.6 % (0.0-6.0); %Lymphocytes 21.5 % (18.0-47.0); %Monocytes 6.5 % (0.0-10.0); %Neutrophils 70.8 % (40.0-75.0); Hemoglobin 11.9 g/dL (12.0-15.5); Mean Corpuscular HGB CONC 34.9 g/dL (32.0-36.0); Mean Corpuscular Hemoglobin 32.1 pg (27.0-33.0); Mean Corpuscular Volume 91.9 fl (81.6-98.3); Mean Platelet Volume 11.5 fl (7.4-10.4); Platelet Count 169 10x3/uL (150-450); RBC Distribution Width 12.2 % (11.5-14.5); Red Blood Cell (RBC) Count 3.71 10x6/uL (3.90-5.03); White Blood Cell (WBC) Count 9.5 10x3/uL (3.5-10.5)
[2022-04-25 04:28] LABS: Anion Gap 14 mmol/L (10-20); BUN (Urea Nitrogen) 18 mg/dL (9.8-20.1); Calc. Creatinine Clearance 82 mL/min (70-130); Calcium 8.3 mg/dL (7.8-10.44); Carbon Dioxide 23 mmol/L (22-29); Chloride 105 mmol/L (98-107); Estimated GFR 62; Glucose 217 mg/dL (70-105); Potassium 3.8 mmol/L (3.5-5.1); Sodium 138 mmol/L (136-145)
[2022-04-25] MEDS: INSULIN REGULAR IN 0.9 % NACL 100 UNIT in Premix Bag 1 BAG IVPB SCH (08:09)
[2022-04-25] MEDS ORDERED: Dextrose 50% Abboject 50 ML SYRINGE SLOW IVP PRN (08:56)
[2022-04-25] MEDS ORDERED: Dextrose 5% in Water 1,000 ML IV PRN (08:56)
[2022-04-25] MEDS ORDERED: Gabapentin 300 MG CAP PO SCH (09:45)
[2022-04-25] MEDS ORDERED: busPIRone HCl 5 MG TAB PO SCH (10:00)
[2022-04-25] MEDS ORDERED: Lantus 1000 UNITS/10 ML VIAL SC SCH (10:00)
[2022-04-25] MEDS ORDERED: tiZANidine HCl 4 MG TAB PO SCH (10:00)
[2022-04-25] MEDS: Sodium Chloride 0.9% 1,000 ML IV SCH ×2 (10:10→21:14)
[2022-04-25] MEDS ORDERED: Lidocaine 5% Patch TD SCH (10:15)
[2022-04-25] MEDS: Acetaminophen 500 MG TAB PO PRN (11:13)
[2022-04-25] MEDS: HumaLOG 300 UNITS/3 ML VIAL SC PRN (11:34)
[2022-04-25] MEDS: Ondansetron PF 4 MG/2 ML Vial IVP PRN ×2 (11:39→21:13)
[2022-04-25] MEDS: Ketorolac Tromethamine 30 MG/ML VIAL IVP PRN ×2 (11:41→18:09)
[2022-04-25] MEDS: Gabapentin 300 MG CAP PO SCH ×2 (14:41→21:13)
[2022-04-25] MEDS: Sucralfate 1 GM TAB PO SCH ×2 (14:42→21:12)
[2022-04-25] MEDS: traZODone HCl 50 MG TAB PO SCH (21:12)
[2022-04-25] MEDS: Mirtazapine 15 MG TAB PO SCH (21:13)
[2022-04-25] MEDS: Lantus 1000 UNITS/10 ML VIAL SC SCH (21:19)
[2022-04-25] MEDS: Transdermal Patch Removal TOP SCH (21:20)
[2022-04-25] MEDS: Ipratropium/Albuterol 3 ML NEB NEB SCH (21:44)
[2022-04-26 02:28] LABS: SARS-CoV-2 NAA Rapid Test Not Detected (NotDetected)
[2022-04-26] MEDS: Ipratropium/Albuterol 3 ML NEB NEB SCH ×4 (02:35→19:40)
[2022-04-26 06:02] LABS: #Eosinphils 0.1 10x3/uL (0.0-0.5); #Monocytes 0.5 10x3/uL (0.0-1.1); #Neutrophils 4.6 10x3/uL (1.5-8.4); %Basophils 0.4 % (0.0-2.0); %Eosinophils 1.3 % (0.0-6.0); %Lymphocytes 24.8 % (18.0-47.0); %Neutrophils 65.9 % (40.0-75.0); Hemoglobin 10.4 g/dL (12.0-15.5); Mean Corpuscular HGB CONC 34.7 g/dL (32.0-36.0); Mean Corpuscular Hemoglobin 32.3 pg (27.0-33.0); Mean Corpuscular Volume 93.2 fl (81.6-98.3); Mean Platelet Volume 11.1 fl (7.4-10.4); Platelet Count 144 10x3/uL (150-450); RBC Distribution Width 12.3 % (11.5-14.5); Red Blood Cell (RBC) Count 3.22 10x6/uL (3.90-5.03)
[2022-04-26 06:16] LABS: Anion Gap 17 mmol/L (10-20); BUN (Urea Nitrogen) 11 mg/dL (9.8-20.1); Calc. Creatinine Clearance 93 mL/min (70-130); Calcium 8.3 mg/dL (7.8-10.44); Carbon Dioxide 22 mmol/L (22-29); Chloride 101 mmol/L (98-107); Estimated GFR 63; Glucose 329 mg/dL (70-105); Potassium 4.1 mmol/L (3.5-5.1); Sodium 136 mmol/L (136-145)
[2022-04-26] MEDS: HumaLOG 300 UNITS/3 ML VIAL SC PRN ×2 (06:35→22:55)
[2022-04-26] MEDS ORDERED: tiZANidine HCl 4 MG TAB PO SCH (09:00)
[2022-04-26] MEDS: Gabapentin 300 MG CAP PO SCH ×3 (09:52→22:46)
[2022-04-26] MEDS: Ketorolac Tromethamine 30 MG/ML VIAL IVP PRN (09:53)
[2022-04-26] MEDS: busPIRone HCl 5 MG TAB PO SCH (09:53)
[2022-04-26] MEDS: Lantus 1000 UNITS/10 ML VIAL SC SCH ×2 (09:55→22:49)
[2022-04-26] MEDS: Sucralfate 1 GM TAB PO SCH ×3 (09:55→22:46)
[2022-04-26] MEDS: Lidocaine 5% Patch TD SCH (09:55)
[2022-04-26] MEDS: metFORMIN 500 MG TAB PO SCH ×2 (09:55→17:06)
[2022-04-26] MEDS: Sodium Chloride 0.9% 1,000 ML IV SCH (10:00)
[2022-04-26] MEDS: Morphine 4 MG/ML VIAL SLOW IVP PRN ×3 (10:42→23:01)
[2022-04-26] MEDS: Metoclopramide HCl 10 MG TAB PO SCH ×3 (12:39→22:46)
[2022-04-26] MEDS: tiZANidine HCl 4 MG TAB PO SCH ×2 (17:06→22:47)
[2022-04-26] MEDS: traMADol HCl 50 MG TAB PO PRN (17:07)
[2022-04-26] MEDS: Mirtazapine 15 MG TAB PO SCH (22:47)
[2022-04-26] MEDS: traZODone HCl 50 MG TAB PO SCH (22:48)
[2022-04-26] MEDS: Transdermal Patch Removal TOP SCH (22:49)
[2022-04-27] MEDS: Acetaminophen 500 MG TAB PO PRN (00:24)
[2022-04-27] MEDS: Ipratropium/Albuterol 3 ML NEB NEB SCH ×4 (01:00→19:45)
[2022-04-27 04:41] LABS: #Eosinphils 0.1 10x3/uL (0.0-0.5); #Monocytes 0.6 10x3/uL (0.0-1.1); #Neutrophils 4.9 10x3/uL (1.5-8.4); %Basophils 0.3 % (0.0-2.0); %Lymphocytes 29.3 % (18.0-47.0); %Monocytes 7.2 % (0.0-10.0); %Neutrophils 61.7 % (40.0-75.0); Hemoglobin 9.7 g/dL (12.0-15.5); Mean Corpuscular HGB CONC 33.9 g/dL (32.0-36.0); Mean Corpuscular Hemoglobin 32.4 pg (27.0-33.0); Mean Corpuscular Volume 95.7 fl (81.6-98.3); Mean Platelet Volume 10.9 fl (7.4-10.4); Platelet Count 162 10x3/uL (150-450); RBC Distribution Width 12.4 % (11.5-14.5); Red Blood Cell (RBC) Count 2.99 10x6/uL (3.90-5.03); White Blood Cell (WBC) Count 7.9 10x3/uL (3.5-10.5)
[2022-04-27 04:51] LABS: Anion Gap 11 mmol/L (10-20); BUN (Urea Nitrogen) 15 mg/dL (9.8-20.1); Calc. Creatinine Clearance 80 mL/min (70-130); Calcium 8.3 mg/dL (7.8-10.44); Carbon Dioxide 27 mmol/L (22-29); Chloride 104 mmol/L (98-107); Estimated GFR 59; Glucose 255 mg/dL (70-105); Potassium 4.1 mmol/L (3.5-5.1); Sodium 138 mmol/L (136-145)
[2022-04-27] MEDS: HumaLOG 300 UNITS/3 ML VIAL SC PRN ×2 (07:01→16:45)
[2022-04-27] MEDS: traMADol HCl 50 MG TAB PO PRN ×2 (07:07→13:02)
[2022-04-27] MEDS: Lidocaine 5% Patch TD SCH (09:25)
[2022-04-27] MEDS: Morphine 4 MG/ML VIAL SLOW IVP PRN ×2 (09:26→13:00)
[2022-04-27] MEDS: tiZANidine HCl 4 MG TAB PO SCH ×3 (09:39→20:37)
[2022-04-27] MEDS: Metoclopramide HCl 10 MG TAB PO SCH ×4 (09:39→20:37)
[2022-04-27] MEDS: busPIRone HCl 5 MG TAB PO SCH (09:40)
[2022-04-27] MEDS: Gabapentin 300 MG CAP PO SCH ×3 (09:40→20:37)
[2022-04-27] MEDS: Sucralfate 1 GM TAB PO SCH ×3 (09:40→20:35)
[2022-04-27] MEDS: metFORMIN 500 MG TAB PO SCH ×2 (09:41→16:40)
[2022-04-27] MEDS: Nicotine 21 MG PATCH TD SCH (09:41)
[2022-04-27] MEDS: Lantus 1000 UNITS/10 ML VIAL SC SCH ×2 (09:42→20:38)
[2022-04-27] MEDS ORDERED: Bisacodyl 10 MG SUPP PR PRN (11:27)
[2022-04-27] MEDS ORDERED: Ketorolac Tromethamine 30 MG/ML VIAL IVP PRN (13:47)
[2022-04-27] MEDS: traMADol HCl 50 MG TAB PO SCH ×2 (16:42→20:35)
[2022-04-27] MEDS: traZODone HCl 50 MG TAB PO SCH (20:36)
[2022-04-27] MEDS: Mirtazapine 15 MG TAB PO SCH (20:36)
[2022-04-27] MEDS: Senokot S 8.6-50 MG TAB PO SCH (21:00)
[2022-04-27] MEDS: Transdermal Patch Removal TOP SCH (21:32)
[2022-04-28] MEDS: Ipratropium/Albuterol 3 ML NEB NEB SCH ×4 (01:00→19:56)
[2022-04-28 05:57] LABS: Anion Gap 16 mmol/L (10-20); BUN (Urea Nitrogen) 16 mg/dL (9.8-20.1); Calc. Creatinine Clearance 95 mL/min (70-130); Calcium 8.5 mg/dL (7.8-10.44); Carbon Dioxide 24 mmol/L (22-29); Chloride 104 mmol/L (98-107); Estimated GFR 74; Glucose 159 mg/dL (70-105); Potassium 3.5 mmol/L (3.5-5.1); Sodium 140 mmol/L (136-145)
[2022-04-28 06:05] LABS: #Eosinphils 0.1 10x3/uL (0.0-0.5); #Monocytes 0.6 10x3/uL (0.0-1.1); #Neutrophils 5.6 10x3/uL (1.5-8.4); %Basophils 0.4 % (0.0-2.0); %Eosinophils 1.4 % (0.0-6.0); %Lymphocytes 22.3 % (18.0-47.0); %Neutrophils 68.5 % (40.0-75.0); Hemoglobin 10.2 g/dL (12.0-15.5); Mean Corpuscular HGB CONC 33.9 g/dL (32.0-36.0); Mean Corpuscular Hemoglobin 32.1 pg (27.0-33.0); Mean Corpuscular Volume 94.7 fl (81.6-98.3); Mean Platelet Volume 10.2 fl (7.4-10.4); Platelet Count 180 10x3/uL (150-450); RBC Distribution Width 12.5 % (11.5-14.5); Red Blood Cell (RBC) Count 3.18 10x6/uL (3.90-5.03); White Blood Cell (WBC) Count 8.1 10x3/uL (3.5-10.5)
[2022-04-28] MEDS ORDERED: Potassium Chloride 20 MEQ TAB PO SCH (08:00)
[2022-04-28] MEDS: Lantus 1000 UNITS/10 ML VIAL SC SCH ×2 (08:54→19:57)
[2022-04-28] MEDS: Lidocaine 5% Patch TD SCH (08:54)
[2022-04-28] MEDS: metFORMIN 500 MG TAB PO SCH ×2 (08:55→15:25)
[2022-04-28] MEDS: busPIRone HCl 5 MG TAB PO SCH (08:55)
[2022-04-28] MEDS: Gabapentin 300 MG CAP PO SCH ×2 (08:55→19:56)
[2022-04-28] MEDS: Metoclopramide HCl 10 MG TAB PO SCH ×4 (08:56→19:56)
[2022-04-28] MEDS: tiZANidine HCl 4 MG TAB PO SCH ×3 (08:56→19:55)
[2022-04-28] MEDS: traMADol HCl 50 MG TAB PO SCH ×3 (08:56→19:55)
[2022-04-28] MEDS: Senokot S 8.6-50 MG TAB PO SCH ×2 (10:14→19:57)
[2022-04-28] MEDS: Nicotine 21 MG PATCH TD SCH (10:14)
[2022-04-28] MEDS: Polyethylene Glycol 3350 17 GM Packet PO SCH (10:14)
[2022-04-28] MEDS: Sucralfate 1 GM TAB PO SCH ×3 (10:15→19:54)
[2022-04-28] MEDS: HumaLOG 300 UNITS/3 ML VIAL SC PRN ×2 (11:44→15:50)
[2022-04-28] MEDS: Mirtazapine 15 MG TAB PO SCH (19:54)
[2022-04-28] MEDS: traZODone HCl 50 MG TAB PO SCH (19:56)
[2022-04-28] MEDS: Transdermal Patch Removal TOP SCH (21:30)
[2022-04-29] MEDS: Ipratropium/Albuterol 3 ML NEB NEB SCH ×4 (02:06→19:12)
[2022-04-29] MEDS: Acetaminophen 500 MG TAB PO PRN (02:08)
[2022-04-29 05:22] LABS: #Eosinphils 0.1 10x3/uL (0.0-0.5); #Monocytes 0.7 10x3/uL (0.0-1.1); #Neutrophils 5.3 10x3/uL (1.5-8.4); %Basophils 0.4 % (0.0-2.0); %Lymphocytes 23.5 % (18.0-47.0); %Monocytes 8.5 % (0.0-10.0); %Neutrophils 66.2 % (40.0-75.0); Hemoglobin 10.5 g/dL (12.0-15.5); Mean Corpuscular HGB CONC 33.9 g/dL (32.0-36.0); Mean Corpuscular Hemoglobin 32.5 pg (27.0-33.0); Mean Platelet Volume 10.1 fl (7.4-10.4); Platelet Count 195 10x3/uL (150-450); RBC Distribution Width 12.8 % (11.5-14.5); Red Blood Cell (RBC) Count 3.23 10x6/uL (3.90-5.03)
[2022-04-29 05:26] LABS: Anion Gap 16 mmol/L (10-20); BUN (Urea Nitrogen) 18 mg/dL (9.8-20.1); Calc. Creatinine Clearance 86 mL/min (70-130); Calcium 8.8 mg/dL (7.8-10.44); Carbon Dioxide 24 mmol/L (22-29); Chloride 101 mmol/L (98-107); Estimated GFR 65; Glucose 199 mg/dL (70-105); Potassium 4.1 mmol/L (3.5-5.1); Sodium 137 mmol/L (136-145)
[2022-04-29] MEDS: HumaLOG 300 UNITS/3 ML VIAL SC PRN ×2 (06:10→11:27)
[2022-04-29] MEDS: Lantus 1000 UNITS/10 ML VIAL SC SCH ×2 (08:42→21:22)
[2022-04-29] MEDS ORDERED: Atenolol 50 MG TAB ONE (08:42)
[2022-04-29] MEDS: Lidocaine 5% Patch TD SCH (08:42)
[2022-04-29] MEDS: Gabapentin 300 MG CAP PO SCH ×2 (08:43→21:12)
[2022-04-29] MEDS: metFORMIN 500 MG TAB PO SCH ×2 (08:43→14:26)
[2022-04-29] MEDS: busPIRone HCl 5 MG TAB PO SCH (08:43)
[2022-04-29] MEDS: Metoclopramide HCl 10 MG TAB PO SCH ×4 (08:43→21:13)
[2022-04-29] MEDS: tiZANidine HCl 4 MG TAB PO SCH ×3 (08:43→21:16)
[2022-04-29] MEDS: Nicotine 21 MG PATCH TD SCH (08:44)
[2022-04-29] MEDS: Atenolol 50 MG TAB PO SCH (08:44)
[2022-04-29] MEDS: Polyethylene Glycol 3350 17 GM Packet PO SCH (08:44)
[2022-04-29] MEDS: Senokot S 8.6-50 MG TAB PO SCH ×2 (08:44→21:14)
[2022-04-29] MEDS: Sucralfate 1 GM TAB PO SCH ×3 (08:44→21:16)
[2022-04-29] MEDS: traMADol HCl 50 MG TAB PO SCH ×3 (08:44→21:15)
[2022-04-29] MEDS: Ondansetron PF 4 MG/2 ML Vial IVP PRN (14:26)
[2022-04-29] MEDS: Mirtazapine 15 MG TAB PO SCH (21:14)
[2022-04-29] MEDS: traZODone HCl 50 MG TAB PO SCH (21:15)
[2022-04-29] MEDS: Transdermal Patch Removal TOP SCH (21:15)
[2022-04-30] MEDS: Acetaminophen 500 MG TAB PO PRN ×2 (03:42→12:47)
[2022-04-30] MEDS: HumaLOG 300 UNITS/3 ML VIAL SC PRN (05:22)
[2022-04-30 05:34] LABS: Anion Gap 20 mmol/L (10-20); BUN (Urea Nitrogen) 20 mg/dL (9.8-20.1); Calc. Creatinine Clearance 80 mL/min (70-130); Calcium 9.1 mg/dL (7.8-10.44); Carbon Dioxide 23 mmol/L (22-29); Chloride 101 mmol/L (98-107); Estimated GFR 60; Glucose 157 mg/dL (70-105); Potassium 3.9 mmol/L (3.5-5.1); Sodium 140 mmol/L (136-145)
[2022-04-30 06:43] VITALS: BMI 31.6
[2022-04-30] MEDS: Ipratropium/Albuterol 3 ML NEB NEB SCH ×2 (07:15→12:14)
[2022-04-30] MEDS: Lantus 1000 UNITS/10 ML VIAL SC SCH (09:00)
[2022-04-30] MEDS: Gabapentin 300 MG CAP PO SCH (10:06)
[2022-04-30] MEDS: traMADol HCl 50 MG TAB PO SCH (10:07)
[2022-04-30] MEDS: tiZANidine HCl 4 MG TAB PO SCH (10:08)
[2022-04-30] MEDS: Lidocaine 5% Patch TD SCH (10:09)
[2022-04-30] MEDS: busPIRone HCl 5 MG TAB PO SCH (10:17)
[2022-04-30] MEDS: metFORMIN 500 MG TAB PO SCH (10:18)
[2022-04-30] MEDS: Atenolol 50 MG TAB PO SCH (10:19)
[2022-04-30] MEDS: Sucralfate 1 GM TAB PO SCH (10:19)
[2022-04-30] MEDS: Nicotine 21 MG PATCH TD SCH (10:27)
[2022-04-30] MEDS: Metoclopramide HCl 10 MG TAB PO SCH ×2 (10:28→11:30)
[2022-04-30 11:55] VITALS: BP 145/97; TEMP 97.5
[2022-04-30] MEDS: Senokot S 8.6-50 MG TAB PO SCH (12:47)
[2022-04-30] MEDS: Polyethylene Glycol 3350 17 GM Packet PO SCH (12:47)
== END 2022-04-30 14:51 | disposition home health service (06) | DRG 562 ==
LOC: CSHERS 07:54 → CSHIMCU 11:10 → CSHTELE 04-25 13:48
PROVIDERS: ADMIT Internal Medicine; ATTEND Hospitalist
DX: S42.252A Displaced fracture of greater tuberosity of left humerus, initial encounter for closed fracture (principal); E11.10 Type 2 diabetes mellitus with ketoacidosis without coma; E87.1 Hypo-osmolality and hyponatremia; N17.9 Acute kidney failure, unspecified; S42.292A Other displaced fracture of upper end of left humerus, initial encounter for closed fracture; J44.9 Chronic obstructive pulmonary disease, unspecified; E86.0 Dehydration; F17.210 Nicotine dependence, cigarettes, uncomplicated; D72.829 Elevated white blood cell count, unspecified; M54.9 Dorsalgia, unspecified; G89.29 Other chronic pain; I50.9 Heart failure, unspecified; I11.0 Hypertensive heart disease with heart failure; F41.9 Anxiety disorder, unspecified; W19.XXXA Unspecified fall, initial encounter; Z20.822 Contact with and (suspected) exposure to COVID-19; F32.A Depression, unspecified; Z88.6 Allergy status to analgesic agent; Z79.84 Long term (current) use of oral hypoglycemic drugs; Z79.899 Other long term (current) drug therapy; Z90.710 Acquired absence of both cervix and uterus; Z98.890 Other specified postprocedural states; S20.02XA Contusion of left breast, initial encounter
CPT/HCPCS: 36415; 36416; 70450; 71045; 80048; 80053; 81003; 81015; 82010; 82805; 83036; 83605; 83690; 84484; 85025; 87040; 93005; 94640; 94760; 94799; 96361; 96365; J0692; J1815; J1885; J2270; J2405; J3370; J3480; J7050; J7620; J7999; U0002